=== PATIENT | male | born 1965 | race Two or more races ===

== ENCOUNTER 2024-11-27 08:30 | Outpatient (RCR) | payer BC, SELFPAY ==
--- NOTE | 2024-11-26 08:45 | XR_ITS ---
Examination: Nuclear medicine thyroid uptake and scan Exam date and time: August 26, 2025 0845 hours INDICATIONS: Difficulty swallowing, thyromegaly on thyroid sonogram study August 28, 2024 TECHNIQUE AND FINDINGS: Oral administration 248 uCi I-123 24 hour uptake 19.4% normal range 10-36% Anterior oblique scans of normal IMPRESSION: Negative examination
== END 2024-12-02 23:59 | disposition home or self-care (01) ==
LOC: SNUC 08:30
PROVIDERS: PCP Nurse Practitioner Primary Care; Referring Provider Nurse Practitioner Primary Care; Visit Provider Nurse Practitioner Primary Care
DX: E01.0 Iodine-deficiency related diffuse (endemic) goiter (principal)
CPT/HCPCS: 78013; A9516

== ENCOUNTER 2024-12-05 09:30 | Day surgery (SDC) | payer BC, SELFPAY ==
[2024-12-05] VITALS (10 sets, daily range): BP systolic 108–147; BP diastolic 72–84; PULSE 58–80; RESP 13–22; TEMP 36.5–37; O2SAT 96–100; BMI 28.3
[2024-12-05] MEDS: SODIUM CHLORIDE 0.9% 100 ML IV (11:38)
[2024-12-05] MEDS: DiphenhydrAMINE INJ 50 MG/ML VIAL 25 MG IV (11:39)
[2024-12-05] MEDS: fentaNYL CIT INJ 50 mCg/ML AMP 2ML (ASD USE ONLY) IV (11:40)
[2024-12-05] MEDS: MIDAZOLAM INJ 1 MG/ML VIAL 2 ML (ASD USE ONLY) 2 MG IV (11:41)
[2024-12-05] MEDS: ONDANSETRON INJ 2 MG/ML INJ 2 ML 4 MG IV (11:58)
== END 2024-12-05 13:20 | disposition home or self-care (01) ==
PROVIDERS: PCP Nurse Practitioner Primary Care; Referring Provider Specialist; Visit Provider Specialist
PROC: 0DBE8ZX Excision of Large Intestine, Via Natural or Artificial Opening Endoscopic, Diagnostic (ICD-10-PCS; CPT 45380; principal; 2024-12-05 10:30)
DX: D12.4 Benign neoplasm of descending colon (principal); D12.5 Benign neoplasm of sigmoid colon; K64.9 Unspecified hemorrhoids; K57.31 Diverticulosis of large intestine without perforation or abscess with bleeding; E78.5 Hyperlipidemia, unspecified; Z79.02 Long term (current) use of antithrombotics/antiplatelets
CPT/HCPCS: 45385; J1200; J2250; J2405; J3010; J7050

== ENCOUNTER 2025-07-23 07:26 | Day surgery (SDC) | payer BC, SELFPAY ==
[2025-07-23] VITALS (9 sets, daily range): BP systolic 118–135; BP diastolic 70–74; PULSE 70–88; RESP 17–19; TEMP 36.7–38.9; O2SAT 95–98; BMI 27.4
--- NOTE | 2025-07-23 07:51 | XR_ITS ---
Examination: CT abdomen with intravenous contrast CT pelvis with intravenous contrast 2-D coronal reconstructions 2-D sagittal reconstructions Date and time of exam:July 23, 2025, 1003 hours INDICATIONS: Onset generalized abdominal pain today. CTDI: vol (mGy) 7.81 DLP: (mGycm) 512 Technique: Multiple axial sections of the abdomen and pelvis have been obtained. 64 slice high-resolution scanner used. 3 mm axial sections have been obtained, post intravenous injection 60 cc Isovue-370 2-D sagittal, coronal reconstructions obtained. Low dose protocols were performed. One or more of the following dose reduction techniques were used; automated exposure control, adjustment of the mA and/or KV according to patient size, use of iterative reconstruction technique. Findings: No focal liver or splenic lesions Absent gallbladder No pancreatic or adrenal mass No renal or ureteral calculi, bilateral benign renal cysts Aorta normal size No bowel obstruction 15 mm umbilical hernia containing fat Acute appendicitis, appendix medial and below the cecum, fluid-filled with inflammatory change, no perforation and no abscess, best depicted axial images 160 through 181 Urinary bladder intact IMPRESSION: Acute appendicitis No localized perforation, no pelvic abscess
--- NOTE | 2025-07-23 07:52 | PD.EDRME ---
Rapid Medical Screening Exam RME Arrival date/time: 07/23/25 07:26 59-year-old male presents to the Emergency Department today for complaints of 1 day history of abdominal pain Chief Complaint: Abdominal Pain Time Seen by Provider: 07/23/25 07:47 Vital signs: Vital Signs Temperature 98.2 F 07/23/25 07:44 Pulse Rate 70 07/23/25 07:44 Respiratory Rate 18 07/23/25 07:44 Blood Pressure 118/73 07/23/25 07:44 Pulse Oximetry (%) 98 07/23/25 07:44 Oxygen Delivery Method Room Air 07/23/25 07:44
[2025-07-23 08:44] LABS: Basophils # (Auto) 0.0 Thou/mm3 (0.0-0.2); Basophils % (Auto) 0 % (0-2.5); Eosinophils # (Auto) 0.0 Thou/mm3 (0.0-0.5); Eosinophils % (Auto) 0 % (0-10); Hematocrit 42.5 % (41.0-53.0); Hemoglobin 14.4 g/dL (13.5-16.0); Immature Granulocytes Auto 0.04 Thou/mm3 (0.00-0.00); Lymphocytes # (Auto) 0.7 Thou/mm3 (1.0-4.8); Lymphocytes % (Auto) 6 % (10-50); Mean Corpuscular HGB Conc 33.9 g/dl (31.0-37.0); Mean Corpuscular Hemoglobin 29.3 pg (25.0-35.0); Mean Corpuscular Volume 86 fL (80-100); Monocytes # (Auto) 0.7 Thou/mm3 (0.0-0.8); Monocytes % (Auto) 6 % (0-12); Neutrophils # (Auto) 9.7 Thou/mm3 (1.8-7.7); Neutrophils % (Auto) 87 % (37-80); Nucleated Red Blood Cell # 0.00 Thou/mm3 (0.00-0.00); Nucleated Red Blood Cell % 0 /100 WBC (0); Platelet Count 232 Thou/mm3 (140-440); RDW Standard Deviation 41.1 fL (35.1-43.9); Red Blood Count 4.92 Miln/mm3 (4.50-5.90); White Blood Count 11.1 Thou/mm3 (3.8-10.6)
[2025-07-23 09:18] LABS: Alanine Aminotransferase 39 U/L (10-49); Albumin, Serum 4.5 gm/dL (3.5-5.0); Albumin/Globulin Ratio 2.0 (1.2-2.2); Alkaline Phosphatase 90 U/L (46-116); Anion Gap 9 (7-16); Aspartate Amino Transferase 25 U/L (0-34); BUN/Creatinine Ratio 18 Ratio (12-20); Bilirubin,Total 1.1 mg/dL (0.3-1.2); Blood Urea Nitrogen 16 mg/dL (9-23); Calcium 9.2 mg/dL (8.3-10.6); Calcium (Corrected) 9.2 mg/dL (8.5-10.1); Carbon Dioxide 24.8 mMol/L (20.0-31.0); Chloride 104 mMol/L (98-107); Creatinine (Component) 0.9 mg/dL (0.6-1.3); Estimated Creatinine Clearance 88.4 mL/min (>60); Globulin 2.3 gm/dL (2.3-3.5); Glucose 134 mg/dL (74-106); Lipase 41 U/L (12-53); Osmolality,Calculated 278 (275-295); Potassium 3.6 mMol/L (3.4-5.1); Sodium 138 mMol/L (136-145); Total Protein 6.8 gm/dL (5.7-8.2); eGFR > 60 See Note
[2025-07-23 09:28] LABS: Collection Type, Urine Clean Catch; Squamous Epithelial Cell,Urine 0 /hpf (0-5)
[2025-07-23 09:35] LABS: Bilirubin,Urine Negative (Negative); Blood,Urine 2+ (Negative); Clarity,Urine Clear (Clear/Hazy); Color,Urine Lt-Yellow (Lt Yel-Yel); Culture Indicated,Urine Not Indicated; Glucose, Urine Negative (Negative); Ketones,Urine Negative (Negative); Leukocyte Esterase,Urine Negative (Negative); Nitrite,Urine Negative (Negative); PH,Urine 6.0 (5.0-7.0); Protein,Urine Negative (Neg - Trace); RBC,Urine 9 /hpf (0-3); Specific Gravity,Urine 1.024 (1.001-1.035); Urobilinogen,Urine Negative mg/dL (0.0-1.0); WBC,Urine 1 /hpf (0-5)
--- NOTE | 2025-07-23 10:03 | PD.EDABDPN ---
ED Abdominal Pain RME/HPI General Chief Complaint: Abdominal Pain Stated complaint: ABD PAIN X1 DAY Time seen by provider: 07/23/25 07:47 Arrival date/time: 07/23/25 07:26 RME / HPI RME / HPI narrative: 59-year-old male here for evaluation of abdominal pain. States that onset with epigastric abdominal pain yesterday which then spread to lower abdomen today. Denies any nausea, vomiting, diarrhea, constipation. Had tactile temperature last night. No urinary symptoms. No previous in the past. Past medical history significant for hypertension. Last p.o. intake was a little bit of water this morning. Related Data Home Medications ?Medication ?Instructions ?Recorded ?Confirmed benazepril 10 1 tab PO QDAY 12/05/24 12/05/24 mg-hydrochlorothiazide 12.5 mg tablet Allergies Allergy/AdvReac Type Severity Reaction Status Date / Time celecoxib (From Celebrex) Allergy Intermediate Rash Verified 07/23/25 07:28 Penicillins Allergy Intermediate Swelling Verified 07/23/25 07:28 of Lip/Tongue/Throat Review of Systems Review of Systems Systems Reviewed: All systems reviewed, normal except as documented Past Medical History Past Medical History CARDIAC: Positive Cardiac Disorders, Hypercholesterolemia and Hypertension MUSCULOSKELETAL: Positive Musculoskeletal Disorders and Degenerative Disk Disease ENT: Positive Deafness ([place]) ENDOCRINE: Positive Endocrine Disorders and Hypothyroidism OTHER HISTORY: Positive Chicken Pox and Measles Surgical History SURGICAL: Positive Nose Surgery (SEPTOPLASTY) and of Shoulder Sx (BILATERAL SHOULDER SURGERY) OTHER SURGICAL HX: Cholecystectomy, back surgery Social History SMOKING STATUS: Never smoker Past Medical History Comments PMH COMMENT: Hypertension ED Exam Narrative Physical exam: Constitutional: Awake, alert, nontoxic, no acute distress HEENT: Normocephalic, atraumatic, extraocular movements intact. Neck: Supple CV: Regular rate and rhythm, no murmurs/rubs/gallops Lungs: Clear to auscultation BL, no respiratory distress. Abd: Soft, ND, no HSM noted to palpation, tender to palpation of right lower quadrant with guarding present mildly to area. Positive Rovsing, tender to McBurney's point, positive obturator and psoas. Neuro: AAOx3, no acute neuro deficit noted. Skin: Warm, dry, intact Course Course Course Narrative: 1000h: 59-year-old male coming in for abdominal pain onset yesterday, worse today with tenderness to right lower quadrant on exam concerning for possible appendicitis. Scan ordered for further evaluation and is pending. 1126h: I spoke with hospitalist team B for admission. 1130h: I called surgeon Dr. Guajardo who is currently in surgery. I left a message with RN regarding the patient with acute appendicitis. Ordered dose of IV antibiotics, IV fluids, and will remain NPO. Quality Measures none Orders Category Date Time Status Patient Condition Routine Admission 07/23/25 11:36 Ordered Patient Condition Routine Admission 07/23/25 11:[address] in Surgical Day Care Routine Admission 07/23/25 11:43 Active COVID-19 Screening Questionnaire NOW Care 07/23/25 11:[address] Screening NOW Care 07/23/25 07:52 Active Consent [Obtain Written Consent For:] .NOW Care 07/23/25 11:43 Active Decision to Admit X1 Care 07/23/25 11:34 Active Insert IV NOW Care 07/23/25 07:52 Active Intake and Output QSHIFT Care 07/23/25 11:45 Ordered Miscellaneous Nursing Order NOW Care 07/23/25 11:36 Active NPO NOW Care 07/23/25 11:37 Active NPO NOW Care 07/23/25 11:44 Active Notify provider NEEDED Care 07/23/25 11:43 Active Obtain weight daily Care 07/23/25 11:37 Active Sequential Compression Device QSHIFT Care 07/23/25 11:36 Active Strict Intake and Output Routine Care 07/23/25 11:37 Ordered Diet NPO (NOW) Diet 07/23/25 11:37 Completed Diet NPO (NOW) Diet 07/23/25 11:[address] abdomen pelvis w con Stat Exams 07/23/25 07:51 Completed CBC Stat Lab 07/23/25 08:23 Completed Comprehensive Metabolic Panel Stat Lab 07/23/25 08:23 Completed Lipase Stat Lab 07/23/25 08:23 Completed UA, C/S IF [Urinalysis, C/S if Indicated] Stat Lab 07/23/25 09:19 Completed Acetaminophen Tab [Tylenol Tab] Med 07/23/25 11:36 Discontinued 650 mg PO Q6H PRN Acetaminophen Tab [Tylenol Tab] Med 07/23/25 11:43 Active 650 mg PO Q6H PRN Acetaminophen Tab [Tylenol Tab] Med 07/23/25 11:47 Active 650 mg PO Q6H PRN Cefoxitin [Mefoxin] 2 gm Med 07/23/25 11:43 Active SODIUM CHLORIDE 0.9% (Popper) [Ns 0.9% (P)] 50 ml IV X1 KCL 20 mEq/L in D5-1/2NS Med 07/23/25 11:45 Active 20 meq in 1,000 ml IV 100 mls/hr Ondansetron Inj [Zofran Inj] Med 07/23/25 11:43 Active 4 mg IVP Q6H PRN Ringers Lactated 1000 ml [Lactated Ringers] 1,000 ml Med 07/23/25 11:45 Discontinued IV 75 mls/hr Sodium Chloride 0.9% 1000 ml [Ns] 1,000 ml Med 07/23/25 11:31 Discontinued IV 100 mls/hr metroNIDAZOLE/NS 500 MG IVPB [Flagyl 500 mg IV] Med 07/23/25 11:33 Active 500 mg in 100 ml IV X1 Code Status Routine Oth 07/23/25 11:36 Ordered Vital Signs Vital signs: Vital Signs Temperature 98.2 F 07/23/25 07:44 Pulse Rate 70 07/23/25 07:44 Respiratory Rate 18 07/23/25 07:44 Blood Pressure 118/73 07/23/25 07:44 Pulse Oximetry (%) 98 07/23/25 07:44 Oxygen Delivery Method Room Air 07/23/25 07:44 Pulse ox is 98% on room air which is adequate. Abdominal Pain MDM Patient data External records reviewed:: [facility] previous records Clinical information provided by:: patient Social determinants that could affect healthcare access:: none Patient has the following chronic illnesses:: Hypertension How is presenting disease/condition affected by chronic disease/condition?: uneffected by Evaluation data The following diagnostics were reviewed and interpreted by me:: lab results and radiology exam(s) Lab and/or radiology exams considered but not ordered:: None Interpretation Summary: Laboratory Results WBC 11.1 Thou/mm3 (3.8-10.6) H 07/23/25 08:23 RBC 4.92 Miln/mm3 (4.50-5.90) 07/23/25 08:23 Hgb 14.4 g/dL (13.5-16.0) 07/23/25 08:23 Hct 42.5 % (41.0-53.0) 07/23/25 08:23 MCV 86 fL (80-100) 07/23/25 08:23 MCH 29.3 pg (25.0-35.0) 07/23/25 08:23 MCHC 33.9 g/dl (31.0-37.0) 07/23/25 08:23 RDW Std Deviation 41.1 fL (35.1-43.9) 07/23/25 08:23 Plt Count 232 Thou/mm3 (140-440) 07/23/25 08:23 Neut % (Auto) 87 % (37-80) H 07/23/25 08:23 Lymph % (Auto) 6 % (10-50) L 07/23/25 08:23 [place] % (Auto) 6 % (0-12) 07/23/25 08:23 Eos % (Auto) 0 % (0-10) 07/23/25 08:23 Baso % (Auto) 0 % (0-2.5) 07/23/25 08:23 Neut # (Auto) 9.7 Thou/mm3 (1.8-7.7) H 07/23/25 08:23 Lymph # (Auto) 0.7 Thou/mm3 (1.0-4.8) L 07/23/25 08:23 [place] # (Auto) 0.7 Thou/mm3 (0.0-0.8) 07/23/25 08:23 Eos # (Auto) 0.0 Thou/mm3 (0.0-0.5) 07/23/25 08:23 Baso # (Auto) 0.0 Thou/mm3 (0.0-0.2) 07/23/25 08:23 Immature Gran # (Auto) 0.04 Thou/mm3 (0.00-0.00) H 07/23/25 08:23 Absolute Nucleated RBC 0.00 Thou/mm3 (0.00-0.00) 07/23/25 08:23 Immature Gran % 0 % (0-0) 07/23/25 08:23 Nucleated RBC % 0 /100 WBC (0) 07/23/25 08:23 Sodium 138 mMol/L (136-145) 07/23/25 08:23 Potassium 3.6 mMol/L (3.4-5.1) 07/23/25 08:23 Chloride 104 mMol/L (98-107) 07/23/25 08:23 Carbon Dioxide 24.8 mMol/L (20.0-31.0) 07/23/25 08:23 Anion Gap 9 (7-16) 07/23/25 08:23 BUN 16 mg/dL (9-23) 07/23/25 08:23 Creatinine 0.9 mg/dL (0.6-1.3) 07/23/25 08:23 Estim Creat Clear Calc 88.4 mL/min (>60) 07/23/25 08:23 eGFR > 60 See Note (60-) 07/23/25 08:23 BUN/Creatinine Ratio 18 Ratio (12-20) 07/23/25 08:23 Glucose 134 mg/dL (74-106) H 07/23/25 08:23 Calculated Osmolality 278 (275-295) 07/23/25 08:23 Calcium 9.2 mg/dL (8.3-10.6) 07/23/25 08:23 Corrected Calcium 9.2 mg/dL (8.5-10.1) 07/23/25 08:23 Total Bilirubin 1.1 mg/dL (0.3-1.2) 07/23/25 08:23 AST 25 U/L (0-34) 07/23/25 08:23 ALT 39 U/L (10-49) 07/23/25 08:23 Alkaline Phosphatase 90 U/L (46-116) 07/23/25 08:23 Total Protein 6.8 gm/dL (5.7-8.2) 07/23/25 08:23 Albumin 4.5 gm/dL (3.5-5.0) 07/23/25 08:23 Globulin 2.3 gm/dL (2.3-3.5) 07/23/25 08:23 Albumin/Globulin Ratio 2.0 (1.2-2.2) 07/23/25 08:23 Lipase 41 U/L (12-53) 07/23/25 08:23 Ur Collection Type Clean Catch 07/23/25 09:19 Urine Color Lt-Yellow (Lt Yel-Yel) 07/23/25 09:19 Urine Clarity Clear (Clear/Hazy) 07/23/25 09:19 Urine pH 6.0 (5.0-7.0) 07/23/25 09:19 Ur Specific [place] 1.024 (1.001-1.035) 07/23/25 09:19 Urine Protein Negative (Neg - Trace) 07/23/25 09:19 Urine Glucose (UA) Negative (Negative) 07/23/25 09:19 Urine Ketones Negative (Negative) 07/23/25 09:19 Urine Blood 2+ (Negative) A 07/23/25 09:19 Urine Nitrite Negative (Negative) 07/23/25 09:19 Urine Bilirubin Negative (Negative) 07/23/25 09:19 Urine Urobilinogen (Auto) Negative mg/dL (0.0-1.0) 07/23/25 09:19 Ur Leukocyte Esterase Negative (Negative) 07/23/25 09:19 Urine RBC 9 /hpf (0-3) H 07/23/25 09:19 Urine WBC 1 /hpf (0-5) 07/23/25 09:19 Ur Squamous Epith Cells 0 /hpf (0-5) 07/23/25 09:19 Urine Bacteria None (None) 07/23/25 09:19 Ur Culture Indicated? Not Indicated 07/23/25 09:19 Medications / Prescriptions Medications or Prescriptions considered but not ordered:: None Medication administrations:: Medication Administration History Acetaminophen (Acetaminophen 325 Mg Tablet) 650 mg PO Q6H PRN PRN Reason: Fever >101.5 Stop: 08/22/25 11:42 Acetaminophen (Acetaminophen 325 Mg Tablet) 650 mg PO Q6H PRN PRN Reason: Pain 1-3 Stop: 08/22/25 11:35 Metronidazole (Flagyl 500 Mg Iv) 500 mg in 100 mls @ 100 mls/hr IV X1 ONE Stop: 07/23/25 12:32 Potassium Chloride/Dextrose/Sod Cl (Kcl 20 Meq/L In D5-1/2ns) 20 meq in 1,000 mls @ 100 mls/hr IV .Q10H GEORGI Stop: 08/22/25 11:44 Cefoxitin Sodium 2 gm/ Sodium (Chloride) 50 mls @ 100 mls/hr IV X1 ONE Stop: 07/23/25 12:12 Ondansetron HCl (Ondansetron Inj 2 Mg/Ml Inj 2 Ml) 4 mg IVP Q6H PRN PRN Reason: NAUSEA OR VOMITING Stop: 08/22/25 11:42 Discontinued Medications Acetaminophen (Acetaminophen 325 Mg Tablet) 650 mg PO Q6H PRN PRN Reason: Pain 1-3 and/or Fever >100.1 Stop: 08/22/25 11:35 Sodium Chloride (Ns) 1,000 mls @ 100 mls/hr IV .Q10H ONE Stop: 07/23/25 21:30 Lactated Ringer's (Lactated Ringers) 1,000 mls @ 75 mls/hr IV .[id number] GEORGI Stop: 07/24/25 01:04 See above Consultations Consultation(s) initiated? (list below): Yes Consultation #1 (Physician, Specialty, Details): See course note Diagnosis Differential diagnosis abdominal pain: abdominal pain, acute appendicitis, calculus of kidney and constipation Most likely diagnosis given after review of the tests above:: Acute appendicitis Admission Indicated Admission indicated?: indicated Admission Request Was there a request for admission?: Yes Admission Attestation Admission request attestation: Discussed case with [] from Hospitalist service regarding admission. Discussed patients ED course, exam findings, labs, and radiology results. The Hospitalist [agrees,declines] to accept the patient for admission. Disposition Plan Disposition Plan: Admit Discharge Plan Plan Patient Disposition: Admit Acute Care w/in Hospital Prescriptions/Referrals Prescriptions/Med Rec: No Action benazepril-hydrochlorothiazide 10-12.5 mg tablet 1 tab PO QDAY Patient Comments: take 1 tablet by mouth once daily Referrals: Landen ZEPEDA)Dionna FNP [Primary Care Provider] - In 1 week Problem List Clinical Impression: Acute appendicitis Patient/Caregiver Discharge Instructions Print Language: Portuguese Stand Alone Forms: Ella Award Info., Patient Portal Info Letter
--- NOTE | 2025-07-23 10:03 | PC.NURSE ---
PATIENT TAKEN TO CT SCAN VIA RNELLY
--- NOTE | 2025-07-23 11:52 | PD.SURHP ---
HPI Date of Admission 07/23/2025 Chief Complaint Chief Complaint: Right lower quadrant abdominal pain with nausea and vomiting HPI 59-year-old male with a history of hypertension presented to the emergency department with acute onset of abdominal pain. His pain started yesterday in the epigastric area. Since earlier today his pain has become persistent, progressively worse and localized over right lower quadrant. He has had 1 episode of emesis with nausea, but denies fever, chills, diarrhea, constipation or dysuria. He denies having similar symptoms in the past with no recent history of trauma. Review of Systems Constitutional Constitutional: Denies chills and Denies fever(s) Cardiovascular Cardiovascular: Denies chest pain Respiratory Respiratory: Denies cough Gastrointestinal Gastrointestinal: Reports abdominal pain, Reports nausea and Reports vomiting Genitourinary Genitourinary: Denies difficulty urinating Hematologic/Lymphatic Hematologic/Lymphatic: Denies easy bleeding and Denies easy bruising Past Medical History Surgical History OTHER SURGICAL HX: Cholecystectomy, back surgery, bilateral shoulder surgery Social History SMOKING STATUS: Never smoker SUBSTANCE USE: does not use ALCOHOL: Current Meds Home Medications and Allergies Home Medications ?Medication ?Instructions ?Recorded ?Confirmed ?Type benazepril 10 1 tab PO QDAY 12/05/24 12/05/24 History mg-hydrochlorothiazide 12.5 mg tablet Allergies Allergy/AdvReac Type Severity Reaction Status Date / Time celecoxib (From Celebrex) Allergy Intermediate Rash Verified 07/23/25 07:28 Penicillins Allergy Intermediate Swelling Verified 07/23/25 07:28 of Lip/Tongue/Throat Exam Vital Signs Temp Pulse Resp BP Pulse Ox O2 Del Method 98.2 F 70 18 118/73 98 Room Air 07/23/25 07:44 07/23/25 07:44 07/23/25 07:44 07/23/25 07:44 07/23/25 07:44 07/23/25 07:44 Constitutional Constitutional: no acute distress Routine Respiratory Exam Respiratory: Present CTA bilaterally Routine Cardiovascular Exam Cardiovascular: Present RRR Routine Abdominal Exam Abdominal: Present soft, normoactive bowel sounds and tenderness (Right lower quadrant tenderness to palpation with guarding, no rebound tenderness or peritonitis at this time); Absent distended Results Results: Laboratory Laboratory results: results reviewed Results: Imaging CT scan - abdomen: report reviewed and image reviewed CT scan - pelvis: report reviewed and image reviewed Assessment & Plan Problem List (1) Unspecified acute appendicitis: Qualifiers: Acute appendicitis type: unspecified acute appendicitis type Qualified Code(s): K35.80 - Unspecified acute appendicitis Status: Acute Plan Will take patient to the operating room for laparoscopic possible open appendectomy. Risks include but not limited to infection, bleeding, injury to bowel, surround neurovascular structures, abdominal sepsis and or abdominal abscess, need for further procedure and or operation discussed with the patient. Benefits and alternatives explained to him, all his questions answered, he agreed and consented to proceed with the operation. Quality Measures Quality Measures none
--- NOTE | 2025-07-23 12:09 | PC.NURSE ---
REPORT GIVEN TO SENG MAYBERRY IN SURGERY. NO FURTHER QUESTIONS. PATIENT WAITING TO SPEAK TO DR. KIRBY
[2025-07-23] MEDS: CEFOXITIN 2 GM in SODIUM CHLORIDE 0.9% (Popper) 50 ML IV (13:20)
[2025-07-23] MEDS: ACETAMINOPHEN SUPP 650 MG SUPP PR (13:45)
--- NOTE | 2025-07-23 14:58 | PD.SUROPNT ---
Date of Procedure 07/23/25 Pre Op Diagnosis Acute appendicitis Post Op Diagnosis Acute appendicitis Procedure Laparoscopic appendectomy Findings Inflamed, dilated and hyperemic appendix without perforation Procedure Description Patient was brought into the operating room in supine position. After administration of general endotracheal anesthesia, abdomen was prepped and draped in standard surgical manner. A Veress needle was inserted through the umbilicus and pneumoperitoneum was obtained up to 15 mmHg. The Veress needle was removed and a 5 mm umbilical incision was made. A 5 mm trocar was placed and laparoscopic camera was inserted. Under direct visualization a laparoscopic camera a 5 mm trocar placed in suprapubic region and a 10 mm trocar placed in left lower quadrant. The abdomen was inspected, the cecum was identified and followed until the appendix was identified. The appendix was noted to be inflamed, dilated and hyperemic without perforation. A window was created between the appendix and mesoappendix and the appendix was divided near the appendix and cecal junction with blue Endo POP stapling device. The mesoappendix was divided with cesar Endo POP stapling device. The appendix was placed inside an Endo Catch and removed from the abdomen utilizing left lower quadrant trocar site. Abdomen and pelvis copiously and thoroughly washed and irrigated, all the fluids were suctioned and the suctioned fluid returned clear. Hemostasis was adequate and satisfactory, staple lines were intact without bleeding or any leakage. Left lower quadrant trocar sites fascial defect was closed with 0 Vicryl using Endo closure device. Instruments and trocars removed, pneumoperitoneum was evacuated and the incisions closed with 4-0 Monocryl subcuticular fashion. Instruments, needles and sponge counts were reported to be correct ??2. Patient tolerated the procedure well, was extubated, breathing spontaneously and without difficulty and was transferred to postanesthesia care in stable condition. Anesthesia GETA and local Pathology / specimen Other (Appendix) Estimated Blood Loss 10 Condition Stable Disposition PACU Surgeon Trell Guajardo MD Surgical Staff Operation Date: 07/23/25 16:45 Case Staff Anesthesiologist: Lester Esparza RNtrade sales assistant: Radha Chung
--- NOTE | 2025-07-23 14:59 | SUR.PHASEI ---
1459 Patient arrived to recovery resting comfortably in [place] [facility], on oxygen 3L via nasal cannula, breathing unlabored, vital signs stable, denies pain, dressing intact to lower abdomen; dermabond, no bleeding noted, report received from Dina ELLSWORTH and Dr. Esparza
--- NOTE | 2025-07-23 15:59 | SUR.PHASEII ---
1559 Patient meets discharge criteria from recovery, awake and alert, breathing unlabored, vital signs stable, denies pain and nausea, able to dress himself into his clothing, discharge instructions given to patient and patients girlfriend with the assistance of the hospital full time staff interpreter Jeannine, patient girlfriend signed discharge instructions. Patient given all his belongings prior to discharge, transported via wheelchair and left in a private vehicle.
== END 2025-07-23 15:59 | disposition home or self-care (01) ==
PROVIDERS: Nurse Practitioner Primary Care; Emergency Provider Family Medicine; PCP Nurse Practitioner Primary Care; Referring Provider Surgery; Visit Provider Surgery
PROC: 0DTJ4ZZ Resection of Appendix, Percutaneous Endoscopic Approach (ICD-10-PCS; CPT 44970; principal; 2025-07-23 16:30)
DX: K35.30 Acute appendicitis with localized peritonitis, without perforation or gangrene (principal); I10 Essential (primary) hypertension
CPT/HCPCS: 44970; 36415; 74177; 80053; 81001; 83690; 85025; 99285; A4217; A4649; J0694; J1100; J2371; J2405; J2704; J3010; J3490; J7050; Q9967; A9270

== ENCOUNTER 2025-08-03 13:31 | Emergency (ER) | payer BC, SELFPAY ==
[2025-08-03 13:42] VITALS: BP 127/82; PULSE 78; RESP 18; TEMP 37; O2SAT 97; BMI 28.0
--- NOTE | 2025-08-03 13:46 | XR_ITS ---
Examination: CT abdomen with intravenous contrast CT pelvis with intravenous contrast 2-D coronal reconstructions 2-D sagittal reconstructions Date and time of exam: August 03, 2025, 1451 hours INDICATIONS: Appendectomy 1 week ago with drainage at the incision site. CTDI: vol (mGy) 8.44 DLP: (mGycm) 532 Technique: Multiple axial sections of the abdomen and pelvis have been obtained. 64 slice high-resolution scanner used. 3 mm axial sections have been obtained, post intravenous injection 60 cc Isovue-370 2-D sagittal, coronal reconstructions obtained. Low dose protocols were performed. One or more of the following dose reduction techniques were used; automated exposure control, adjustment of the mA and/or KV according to patient size, use of iterative reconstruction technique. Findings: No focal liver or splenic lesions Absent gallbladder No pancreatic or adrenal mass. No hydronephrosis or renal calculi Absent appendix Increased density in the subcutaneous fat left anterior abdomen with small air densities and adjacent skin thickening, for instance axial image 133 Aorta normal size No abdominal or pelvic abscess Bladder intact IMPRESSION: Absent appendix Infectious change in the anterior left abdominal wall with skin thickening without a fluid-filled drainable abscess, suggest follow-up
[2025-08-03 14:30] LABS: Basophils # (Auto) 0.0 Thou/mm3 (0.0-0.2); Basophils % (Auto) 0 % (0-2.5); Eosinophils # (Auto) 0.1 Thou/mm3 (0.0-0.5); Eosinophils % (Auto) 1 % (0-10); Hematocrit 44.4 % (41.0-53.0); Hemoglobin 15.3 g/dL (13.5-16.0); Immature Granulocytes Auto 0.05 Thou/mm3 (0.00-0.00); Lymphocytes # (Auto) 1.9 Thou/mm3 (1.0-4.8); Lymphocytes % (Auto) 19 % (10-50); Mean Corpuscular HGB Conc 34.5 g/dl (31.0-37.0); Mean Corpuscular Hemoglobin 29.0 pg (25.0-35.0); Mean Corpuscular Volume 84 fL (80-100); Monocytes # (Auto) 0.6 Thou/mm3 (0.0-0.8); Monocytes % (Auto) 6 % (0-12); Neutrophils # (Auto) 7.2 Thou/mm3 (1.8-7.7); Neutrophils % (Auto) 73 % (37-80); Nucleated Red Blood Cell # 0.00 Thou/mm3 (0.00-0.00); Nucleated Red Blood Cell % 0 /100 WBC (0); Platelet Count 354 Thou/mm3 (140-440); RDW Standard Deviation 38.1 fL (35.1-43.9); Red Blood Count 5.28 Miln/mm3 (4.50-5.90); White Blood Count 10.0 Thou/mm3 (3.8-10.6)
[2025-08-03 14:39] LABS: Alanine Aminotransferase 82 U/L (10-49); Albumin, Serum 5.1 gm/dL (3.5-5.0); Albumin/Globulin Ratio 1.7 (1.2-2.2); Alkaline Phosphatase 156 U/L (46-116); Anion Gap 13 (7-16); Aspartate Amino Transferase 47 U/L (0-34); BUN/Creatinine Ratio 19 Ratio (12-20); Bilirubin,Total 0.6 mg/dL (0.3-1.2); Blood Urea Nitrogen 19 mg/dL (9-23); Calcium 10.3 mg/dL (8.3-10.6); Calcium (Corrected) 10.3 mg/dL (8.5-10.1); Carbon Dioxide 25.3 mMol/L (20.0-31.0); Chloride 102 mMol/L (98-107); Creatinine (Component) 1.0 mg/dL (0.6-1.3); Estimated Creatinine Clearance 83.8 mL/min (>60); Globulin 3.0 gm/dL (2.3-3.5); Glucose 97 mg/dL (74-106); Osmolality,Calculated 281 (275-295); Potassium 3.6 mMol/L (3.4-5.1); Sodium 140 mMol/L (136-145); Total Protein 8.1 gm/dL (5.7-8.2); eGFR > 60 See Note
[2025-08-03] MEDS: VANCOMYCIN/NS 1 GM IVPB 200 ML IV (15:03)
--- NOTE | 2025-08-03 17:29 | EDNOTE_ITS ---
ED Wound/Laceration-RME/HPI General Chief Complaint: Wound Recheck / Suture Removal Stated Complaint: Appy Sx/Bleeding site Time Seen by Provider: 08/03/25 13:43 Arrival date/time: 08/03/25 13:31 This is a case of 59-year-old male with no medical history came in in the emergency room due to for wound check today patient had status post lap appendectomy last July 23, 2025 with no complication after 2 days prior to arrival in the emergency room patient noted to have discharge on the left lower quadrant lab appendectomy site with discharge with 4 x 4 centimeter redness mild swelling tender to touch patient has no fever or chills denies any nausea vomiting or abdominal pain persistence of the symptoms this patient decided to sought consult here in the emergency room Limitations: no limitations Related Data Home Medications ?Medication ?Instructions ?Recorded ?Confirmed benazepril 10 1 tab PO QDAY 12/05/2412/05 mg-hydrochlorothiazide 12.5 mg tablet Previous Rx's ?Medication ?Instructions ?Recorded docusate sodium 100 mg capsule 100 mg PO BID #20 caps 07/23/25 (Colace) hydrocodone 5 mg-acetaminophen 325 1 tab PO Q6H PRN pa in (scale score 07/23/25 mg tablet 7-10) #10 tabs ibuprofen 600 mg tablet 600 mg PO Q8H PRN pain (scal e 07/23/25 score 4-6) #15 tabs doxycycline monohydrate 100 mg 100 mg PO BID #20 caps 08/03/25 capsule mupirocin 2 % topical ointment 1 applic topical BID #2 2 grams 08/03/25 (Centany) sulfamethoxazole 800 1 tab PO Q12H 10 days #20 ta bs 08/03/25 mg-trimethoprim 160 mg tablet (Bactrim DS) Allergies Allergy/AdvReac Type Severity Reaction Status Date / Time celecoxib (From Celebrex) Allergy Intermediate Rash Verified 07/23/25 07:28 Penicillins Allergy Intermediate Swelling Verified 07/23/25 07:28 of Lip/Tongue/Throat Review of Systems Review of Systems Systems Reviewed: All systems reviewed, normal except as documented Constitutional Constitutional: Reports system reviewed and no additional complaints, except as documented and Reports as per HPI Cardiovascular Cardiovascular: Reports system reviewed and no additional complaints, except as documented and Reports as per HPI Respiratory Respiratory: Reports system reviewed and no additional complaints, except as documented and Reports as per HPI Gastrointestinal Gastrointestinal: Reports system reviewed and no additional complaints, except as documented and Reports as per HPI Neurologic Neurologic: Reports system reviewed and no additional complaints, except as documented and Reports as per HPI Past Medical History Past Medical History NEUROLOGIC: Negative Neurological Disorders or Seizures CARDIAC: Positive Hypercholesterolemia and Hypertension; Negative Cardiac Disorders or Congestive Heart Failure RESPIRATORY: Negative Chronic Obstructive Pulmonary Disease (COPD) or Asthma GASTROINTESTINAL: Negative Gastrointestinal Disorders GENITOURINARY: Negative Genitourinary Disorders or Renal Disease MUSCULOSKELETAL: Positive Musculoskeletal Disorders and Degenerative Disk Disease ENT: Positive Deafness ([place]) ENDOCRINE: Positive Endocrine Disorders and Hypothyroidism; Negative Diabetes Mellitus Type 1 or Diabetes Mellitus Type 2 HEMATOLOGIC: Negative Blood Disorders or Sickle Cell Disease OTHER HISTORY: Positive Chicken Pox and Measles; Negative Autoimmune Disease, Blood Transfusions, Anesthesia Reactions or Cancer Surgical History SURGICAL: Positive Nose Surgery (SEPTOPLASTY) Social History SMOKING STATUS: Former smoker SUBSTANCE USE: does not use ED Exam General Limitations: Present no limitations General appearance: Present alert, in no apparent distress and other Head Head exam: Present atraumatic, normocephalic and normal inspection Eye Eye exam: Present normal appearance, PERRL and EOMI ENT ENT exam: Present normal exam, normal oropharynx and mucous membranes moist Neck Neck exam: Present normal inspection, full ROM and trachea midline; Absent tenderness, meningismus, lymphadenopathy or thyromegaly Chest Chest inspection: Present normal inspection and symmetric chest wall rise; Absent tenderness Respiratory Respiratory exam: Present normal lung sounds bilaterally; Absent respiratory distress, wheezes, stridor, accessory muscle use or prolonged expiratory phase Cardiovascular Cardiovascular exam: Present regular rate, normal rhythm and normal heart sounds; Absent bradycardia, tachycardia, irregular rhythm, systolic murmur or diastolic murmur Abdominal Exam Abdominal exam: Present soft, tenderness (Mild tenderness on the left lower quadrant on the site lap appendectomy 2 cm surgical incision not open no wound dehiscence but with clear discharge tender to touch no abscess no fluctuance not indurated but with 4 x 4 centimeter redness suggestive of cellulitis) and normal bowel sounds; Absent distention, guarding, rebound, rigidity, diminished bowel sounds, hyperactive bowel sounds, hypoactive bowel sounds, organomegaly, psoas sign, obturator sign, heel tap sign, Marx's sign, Rovsing's sign, tenderness a t McBurney's Point, ascites or hernia Extremities Exam Extremities exam: Present normal inspection and full ROM Back Exam Back exam: Present normal inspection and full ROM Neurological Exam Neurological exam: Present alert, oriented X3, CN II-XII intact, normal gait and reflexes normal; Absent motor sensory deficit Psychiatric Psychiatric exam: Present normal affect and normal mood Skin Skin exam: Present warm, dry, intact, normal color and other (Cellulitis on the left anterior abdominal wall) Course Quality Measures none Orders Category Date Time Status CT Screening NOW Care 08/03/25 13:[address] abdomen pelvis w con Stat Exams 08/03/25 13:46 Completed CBC Stat Lab 08/03/25 14:10 Completed CMP [Comprehensive Metabolic Panel] Stat Lab 08/03/25 14:10 Completed Vancomycin Inj 1,000 mg Med 08/03/25 13:48 Discontinued Sodium Chloride 0.9% 250 ml [Ns] 250 ml IV X1 Vancomycin/Ns 1 gm Ivpb 200 ml Med 08/03/25 14:00 Discontinued IV X1 Vital Signs Vital signs: Vital Signs Temperature 98.6 F 08/03/25 13:42 Pulse Rate 78 08/03/25 13:42 Respiratory Rate 18 08/03/25 13:42 Blood Pressure 127/82 08/03/25 13:42 Pulse Oximetry (%) 97 08/03/25 13:42 Oxygen Delivery Method Room Air 08/03/25 13:42 Oxygen saturation is 97% in room air normal Wound / Laceration MDM Narrative MDM Narrative:: This is a case of 59-year-old male with no medical history came in in the emergency room due to for wound check today patient had status post lap appendectomy last July 23, 2025 with no complication after 2 days prior to arrival in the emergency room patient noted to have discharge on the left lower quadrant lab appendectomy site with discharge with 4 x 4 centimeter redness mild swelling tender to touch patient has no fever or chills denies any nausea vomiting or abdominal pain persistence of the symptoms this patient decided to sought consult here in the emergency room physical examination patient is awake alert oriented not in distress nontoxic looking well-hydrated well-nourished excellent skin turgor patient have 3 side of the lap appendectomy that to site has no infection no redness no swelling no discharge the site that is located on the left lower quadrant approximately 2 cm surgical incision noted to have redness swelling and discharge but not open no wound dehiscence no fluctuance not indurated no abscess but with 4 x 4 centimeter redness suggestive of cellulitis blood test showed no leukocytosis no anemia kidney and liver function is normal no electrolyte imbalance patient CT scan of abdomen with contrast showed a infectious disease on the anterior left abdominal wall with no abscess fluid which confirmed my diagnosis of cellulitis I spoke to Dr. Guajardo and I was told to discharge patient and discharged with cephalexin and Bactrim and fo llow-up with his clinic patient was given vancomycin here in the emergency room prior to discharge I discussed with the patient the treatment plan and follow-up with Dr. Guajardo and understand very well the discharge instruction he was also advised to follow-up with PCP for reevaluation and for any worsening symptoms or any emergent condition return precaution to the ER as advised Patient was discharged with comfortable condition walking with stable gait. Patient verbalized no further complains explained diagnosis and answered patient question. Patient is comfortable with the proposed management plan including the need to follow up with his/her primary care physician and any specialist if applicable Discussed patient for any urgent condition or worsening sx, He/She needed to go to emergency room immediately or call 911. Patient acknowledge the responsibility to follow up as instructed and to monitor her/his symptoms. For any persistence of the symptoms for more than 3-5 days return precaution advised. Discussed the result of the test and was given printed discharge instruction Patient data External records reviewed:: [facility] previous records Clinical information provided by:: patient Social determinants that could affect healthcare access:: none Patient has the following chronic illnesses:: None How is presenting disease/condition affected by chronic disease/condition?: no chronic disease Evaluation data The following diagnostics were reviewed and interpreted by me:: lab results and radiology exam(s) Lab and/or radiology exams considered but not ordered:: Reviewed Interpretation Summary: Reviewed Medications / Prescriptions Medications or Prescriptions considered but not ordered:: Given Medication administrations:: Medication Administration History Discontinued Medications Vancomycin HCl 1,000 mg/ (Sodium Chloride) 250 mls @ 150 mls/hr IV X1 ONE Stop: 08/03/25 15:27 Last Admin: 08/03/25 15:04 Dose: Not Given Documented By: SF Non-Admin Reason: Duplicate Medication on eMAR Vancomycin/Sodium Chloride (Vancomycin/Ns 1 Gm Ivpb) 200 mls @ 120 mls/hr IV X1 ONE Stop: 08/03/25 15:39 Last Infusion: 08/03/25 17:00 Dose: Infused Documented By: Admin: 08/03/25 15:03 Dose: 120 mls/hr Documented By: SF Given Consultations Consultation(s) initiated? (list below): Yes Consultation #1 (Physician, Specialty, Details): Dr Guajardo discharge patient and give Bactrim and cephalexin follow-up with your doctor in clinic Diagnosis Wound Differential Diagnosis: abscess and other (Cellulitis wound dehiscence) Most likely diagnosis given after review of the tests above:: Cellulitis Admission Indicated Admission indicated?: not indicated Explain why admission is indicated or not indicated:: Not indicated Admission Request Was there a request for admission?: No Admission Attestation Admission request attestation: Not indicated Disposition Plan Disposition Plan: Discharge Discharge Attestation Discharge Attestation: The patient and all family members were given an opportunity to ask questions and understood the discharge instructions. Discharge instructions specifically effects, indications for sooner follow up or return to the emergency department, and the expected course of current diagnosis. Patient condition: Stable Discharge Plan Plan Patient Disposition: HOME (Self Care) Patient condition on transfer: Stable Prescriptions/Referrals Prescriptions/Med Rec: New sulfamethoxazole-trimethoprim [Bactrim DS] 800-160 mg tablet 1 tab PO Q12H 10 Days Qty: 20 0RF mupirocin [Centany] 2 % ointment 1 applic topical BID Qty: 22 0RF doxycycline monohydrate 100 mg capsule 100 mg PO BID Qty: 20 0RF No Action docusate sodium [Colace] 100 mg capsule 100 mg PO BID Qty: 20 0RF hydrocodone-acetaminophen 5-325 mg tablet 1 tab PO Q6H MDD 4 PRN (Reason: pain (scale score 7-10)) Qty: 10 0RF ibuprofen 600 mg tablet 600 mg PO Q8H PRN (Reason: pain (scale score 4-6)) Qty: 15 0RF benazepril-hydrochlorothiazide 10-12.5 mg tablet 1 tab PO QDAY Patient Comments: take 1 tablet by mouth once daily Referrals: Trell Guajardo MD [Physician, General Surgery] - 08/03/25 Referral Note: Call clinic today for scheduled appointment for further evaluation and treatment. Infection and abdominal strickland cellulitis No Primary/Family,Physician [Primary Care Provider] - In 1 week Problem List Clinical Impression: Visit for wound check, Surgical wound infection, Abdominal wall cellulitis Patient/Caregiver Discharge Instructions Education Materials: Preventing Surgical Site Infections, ED Cellulitis, ED Post Op Wound Check, Infection Additional Instructions: Follow-up with your primary care physician in 2 days for reevaluation it is very important to call Dr Guajardo clinic today for scheduled appointment for further evaluation and treatment of postop surgical infection and cellulitis worsening symptoms or any emergent concerns such as fever chills redness swelling discharge from the wound call 911 or go to the nearest emergency room keep the wound clean and dry finish the course of antibiotic Print Language: Urdu Stand Alone Forms: Ella Award Info., Patient Portal Info Letter PA/INFORMATICA DEVELOPER Supervising Physician PA/INFORMATICA DEVELOPER Supervising Physician: Dr. Williamson
== END 2025-08-03 17:17 | disposition home or self-care (01) ==
PROVIDERS: Nurse Practitioner Family; Emergency Provider Family Medicine
DX: Z48.02 Encounter for removal of sutures (principal)
CPT/HCPCS: 36415; 74177; 80053; 85025; 96365; 96366; 99283; A4649; J3373; Q9967